=== PATIENT | female | born 1980 | race Caucasian/White ===

== ENCOUNTER → 2017-08-16 | Outpatient (CLI) | payer OTHER ==
[~2017-08-16] MED LIST: ALBU90OI INH; ALPR.25 PO; AMOCLA875 PO; AMOX250 PO; AMOX500 PO; AZIT250 PO; BENZ100A PO; CYCL10 PO; HYDACE5 PO; HYDACE5325 PO; IBUP600 PO; LEVFLO500 PO; LORA1 PO; NAPR500 PO; OXYACE5T PO; PHENA200 PO; Prednisone10 MG PO; RXOXYACE PO; SUDAFED PO; SULTRIDS PO; Zithromax250 MG PO
== END | disposition home or self-care (01) ==
LOC: LAB SHORT 10:04 → LAB 10:04
PROVIDERS: Obstetrics & Gynecology
DX: Z01.419 Encounter for gynecological examination (general) (routine) without abnormal findings (principal)
CPT/HCPCS: 87624; G0123

== ENCOUNTER → 2019-02-26 | Outpatient (CLI) | payer OTHER ==
[2019-02-26 19:19] LABS: Blood, Urine 4+ (Neg); Glucose Qualitative, Urine Neg (Neg); Ketones, Urine 1+ (Neg); Leukocyte Esterase, Urine 3+ (Neg); Nitrite, Urine Pos (Neg); Protein, Urine 3+ (Neg); Urobilinogen, Urine 4+ (Normal); pH, Urine 6.5 (5.0-8.0)
[2019-02-26 19:25] LABS: Appearance, Urine Cloudy (Clear); Bilirubin, Urine 3+ (Neg); Color, Urine Orange (P-Yellow)
[2019-02-26 19:26] LABS: Bacteria Mod /hpf; Mucus Light (0-Heavy); Squamous Epithelial Cells Few /hpf (Few); White Blood Cells, Urine 25-50 /hpf (0-5)
== END ==
LOC: LAB SHORT 13:30 → LAB 13:30
PROVIDERS: Nurse Practitioner Family
DX: R30.0 Dysuria (principal)
CPT/HCPCS: 81001; 87077; 87086; 87186

== ENCOUNTER → 2020-06-29 | Outpatient (CLI) | payer OTHER ==
[2020-07-02 16:10] LABS: HPV 16 Negative (Negative); HPV 18 Negative (Negative); HPV OTHER HR TYPES Negative (Negative)
== END ==
LOC: LAB 11:49 → LAB SHORT 11:49
PROVIDERS: Obstetrics & Gynecology
DX: Z01.419 Encounter for gynecological examination (general) (routine) without abnormal findings (principal)
CPT/HCPCS: 87624; G0123

== ENCOUNTER → 2021-05-19 | Outpatient (CLI) | payer OTHER | END | disposition home or self-care (01) | LOC: LAB 13:52 → LAB SHORT 13:52 | DX: R35.0 Frequency of micturition (principal) | CPT/HCPCS: 87077; 87086; 87186 ==

== ENCOUNTER → 2021-08-10 | Outpatient (CLI) | payer OTHER | END | disposition home or self-care (01) | LOC: LAB 16:30 → LAB SHORT 16:30 | DX: R30.0 Dysuria (principal) | CPT/HCPCS: 87077; 87086; 87186 ==

== ENCOUNTER → 2023-01-01 | Outpatient (CLI) | payer OTHER | LOC: LAB 13:05 → LAB SHORT 13:05 | DX: N30.00 Acute cystitis without hematuria (principal); R30.0 Dysuria | CPT/HCPCS: 87086 ==

== ENCOUNTER 2024-03-06 06:48 | Day surgery (SDC) | payer OTHER ==
[2024-03-06] VITALS (19 sets, daily range): BP systolic 118–138; BP diastolic 63–90
[~2024-03-06] VITALS: Ht 167.6 cm; Wt 66.0 kg
[~2024-03-06 06:48] MED LIST changes: +CeFAZolin Sodium 2,000 MG in NS 100 ML IV SCH; +Dexamethasone Sod Phos 10 MG/ML 1ML VIAL ONE; +Dexmedetomidine HCL 200 MCG / 2 ML ONE; +DiphenhydrAMINE HCl 50 MG/ML 1ML Vial ONE; +HYDROmorphone HCl/Pf 1MG SYR ONE; +IMITREX50 M2 PO; +Ketorolac Tromethamine 30mg Vial ONE; +Lactated Ringer's 1,000 ML IV SCH; +Lidocaine HCl 2% 20 ML MDV ONE; +Lidocaine HCl 4% 5 ML SDA ONE; +Metoclopramide HCl 5MG / ML 2ML Vial ONE; +Ondansetron HCl 2 MG / ML 2ML Vial ONE; +Rocuronium Bromide 10 MG/ML 5ML Injection IV ONE; +Sugammadex Sodium 200 MG/2ML SDV (100 MG/ML) ONE; +propofoL 200 ML IV ONE
[2024-03-06] MEDS ORDERED: CeFAZolin Sodium 2,000 MG VIAL ONE (07:04)
[2024-03-06] MEDS ORDERED: Bupivacaine 0.5% W/EPI 1:200000 SDV 30 ML Vial ONE (07:14)
[2024-03-06] MEDS ORDERED: Acetaminophen 500 MG Tab PO ONE (07:15)
[2024-03-06] MEDS ORDERED: Ropivacaine 0.5% HCL/PF 5 MG/ML 30ML Vial ONE (07:22)
[2024-03-06] MEDS ORDERED: EpiNEPhrine 1 MG/1 ML 1ML Vial ONE (07:27)
[2024-03-06] MEDS ORDERED: Dexamethasone Sod Phos 10 MG/ML 1ML VIAL ONE (07:27)
[2024-03-06] MEDS ORDERED: Ketamine HCl 100 MG / ML 5ML Vial ONE (08:05)
[2024-03-06] MEDS ORDERED: FentaNYL Citrate 50 MCG/ML 2 ML Injection ONE ×3 (08:13→11:23)
[2024-03-06] MEDS ORDERED: propofoL 20 ML IV ONE (10:12)
[2024-03-06] MEDS ORDERED: HYDROmorphone HCl/Pf 1MG SYR ONE ×3 (10:23→11:24)
[2024-03-06] MEDS ORDERED: Glycopyrrolate 0.2 MG/ML 5ML VIAL ONE (10:35)
[2024-03-06] MEDS ORDERED: SUMAtriptan succinate 50 MG Tab PO PRN (10:50)
[2024-03-06] MEDS ORDERED: Naloxone HCl 0.4MG / ML 1ML Vial IV PRN (10:55)
[2024-03-06] MEDS ORDERED: Ondansetron HCl 2 MG / ML 2ML Vial IV PRN (10:55)
[2024-03-06] MEDS ORDERED: DiphenhydrAMINE HCL 25 MG Cap PO PRN (10:55)
[2024-03-06] MEDS ORDERED: Ondansetron 4 MG TAB PO PRN (10:55)
[2024-03-06] MEDS ORDERED: Simethicone 80 MG Chew PO PRN (10:55)
[2024-03-06] MEDS ORDERED: OxyCODONE 5 mg/Acetamin 325 mg TABLET PO PRN (10:55)
[2024-03-06] MEDS ORDERED: HYDROmorphone HCl/Pf 1MG SYR IV PRN (11:00)
[2024-03-06] MEDS ORDERED: FLU VACC TS2024-25(6MOS UP)/PF 45 MCG/0.5 ML SYRINGE IM SCH (11:00)
[2024-03-06] MEDS ORDERED: Lactated Ringer's 1,000 ML IV SCH (11:00)
[2024-03-06] MEDS ORDERED: Promethazine HCl 12.5 MG Supp PR PRN (11:00)
[2024-03-06] MEDS ORDERED: Promethazine HCl 25 MG Tab PO PRN (11:00)
[2024-03-06] MEDS ORDERED: Ketorolac Tromethamine 30mg Vial IV PRN (11:10)
[2024-03-06] MEDS ORDERED: LORazepam 2 MG/ML 1ML Injection ONE (11:27)
--- NOTE | 2024-03-06 12:32 | NUR ---
POST OP S/P TOTAL ROBOTIC LAP HYSTER. X4 LAP SITES TO ABD WITH WOUND GLUE ARE CDI. PT DROWSY, BUT WANTED TO GET OUT OF BED TO USE THE RESTROOM. PT VOIDED AND HAS SCANT VAGINAL BLEEDING. 1 SBA PT IS UNSTEADY ON HER FEET. PT COMPLAINS OF PAIN, BUT DECLINES HEATING PAD AND UNABLE TO DESCRIBE OR RATE PAIN. POST OP VSS AND IN PROGRESS. PT TORREY SIPS OF WATER. SIG OTHER AT BEDSIDE. CALL LIGHT WITHIN REACH. EDUCATED ON TREATMENT PLAN.
[2024-03-06] MEDS ORDERED: CeFAZolin Sodium 2,000 MG in NS 100 ML IV SCH (14:00)
--- NOTE | 2024-03-06 15:08 | NUR ---
Pt. is awake and sitting up on the side of her bed when I visit at bedside. Pt. is unsettled, and keeps verbalizing "I want to go home" with a moaning tone. Pts. arms are folded arounf her midsection and she displays evidence of abdominal discomfort. Attempted a life review, then with the Pts. permission I Prayed with her. Notified charge nurse with the concern that the Pt. was attempting to get out of bed and was a possible fall risk.
[2024-03-06] MEDS ORDERED: PROM25 PO (16:36)
[2024-03-06] MEDS ORDERED: Percocet 5-3251 EACH PO (16:36)
[2024-03-06] MEDS ORDERED: SIME80CH (16:38)
--- NOTE | 2024-03-06 17:08 | NUR ---
DISCHARGE PT EDUCATED ON AND RECEIVED PRINTED DISCHARGE INSTRUCTIONS AND VERBALIZED AN UNDERSTANDING. IV DC'D. PT TAKING ORAL PAIN MEDICATIONS, TORREY SMALL AMOUNT OF PO, AMBULATING TO RESTROOM AND VOIDING SPONTANEOUSLY. PT GATHERED ALL PERSONAL BELONGINGS AND ESCORTED OUT TO VEHICLE VIA W/C. PT SIG OTHER DRIVING PT HOME.
== END 2024-03-06 17:08 | disposition home or self-care (01) ==
LOC: ORSCMMR 06:48 → ORD 07:30 → SURS 11:59 → ORSCMMR 17:08
PROVIDERS: Obstetrics & Gynecology
PROC: 0U5F4ZZ Destruction of Cul-de-sac, Percutaneous Endoscopic Approach (ICD-10-PCS; principal; 2024-03-06 07:30)
PROC: 0UT9FZZ Resection of Uterus, Via Natural or Artificial Opening With Percutaneous Endoscopic Assistance (ICD-10-PCS; principal; 2024-03-06 07:30)
PROC: 0UT7FZZ Resection of Bilateral Fallopian Tubes, Via Natural or Artificial Opening With Percutaneous Endoscopic Assistance (ICD-10-PCS; principal; 2024-03-06 07:30)
PROC: 8E0W4CZ Robotic Assisted Procedure of Trunk Region, Percutaneous Endoscopic Approach (ICD-10-PCS; principal; 2024-03-06 07:30)
DX: D25.9 Leiomyoma of uterus, unspecified (principal); N80.03 Adenomyosis of the uterus; N92.1 Excessive and frequent menstruation with irregular cycle; N94.6 Dysmenorrhea, unspecified; N94.10 Unspecified dyspareunia; D50.0 Iron deficiency anemia secondary to blood loss (chronic); R10.2 Pelvic and perineal pain; N80.319 Endometriosis of the anterior cul-de-sac, unspecified depth; Q50.5 Embryonic cyst of broad ligament; N83.8 Other noninflammatory disorders of ovary, fallopian tube and broad ligament; F17.210 Nicotine dependence, cigarettes, uncomplicated; F41.9 Anxiety disorder, unspecified; Z79.899 Other long term (current) drug therapy
CPT/HCPCS: 86850; 86900; 86901; 88305; 88307; A9270; J0171; J0690; J1100; J1171; J1200; J1885; J2003; J2060; J2405; J2704; J2765; J2795; J3010; J7120